=== PATIENT | male | born 1965 | race Caucasian/White ===

== ENCOUNTER 2016-12-25 18:01 | Emergency (ER) | payer MEDICARE, MEDICAID ==
--- NOTE | 2016-12-25 19:07 | Emergency Department Record ---
History of Present Illness - General Chief Complaint: Fall Injury Stated Complaint: FALL INJURY/ LEFT HIP PAIN Time Seen by Provider: 12/25/16 18:55 Source: Patient Mode of Arrival: Wheelchair Limitations: No limitations - History of Present Illness Initial Comments: The patient is here due to injuring his L hip about 5 hours ago. He feel out of his wheelchair directly onto his L hip and since it has been very painful and he cannot move it. 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 The patient denies any head trauma, neck or back pain, AP, CP or any SOB. He did drive himself to the ER. The patient did take 2 of his [place] 10's prior to getting here. Complaint: Fall Onset/Timin -: Hour(s) Fall From: Wheelchair When Fall Occurred: 4-6 hours [employer] Fall Witnessed: Yes, by bystander Place Fall Occurred: Home Loss of Consciousness: None Prolonged Down Time?: Minute(s) Severity scale (1-10): 10 Quality: Aching - [place] Coma Scale Eye Response: (4) Open spontaneously Motor Response: (6) Obeys commands Verbal Response: (5) Oriented [place] Total: 15 - Related Data Home Medications Medication Instructions Recorded Confirmed Last Taken Hydrocodone/Acetaminophen [[place] 1 tab PO Q8H PRN 12/25/16 12/25/16 12/25/16 10mg/325mg] Pregabalin [Lyrica] 150 mg PO BID 12/25/16 12/25/16 12/25/16 Allergies Allergy/AdvReac Type Severity Reaction Status Date / Time cephalexin [From Keflex] Allergy NAUSEA AND Verified 12/25/16 18:43 VOMITING morphine AdvReac HYPERSENSIT Verified 12/25/16 18:43 IVITY Travel Screening - Travel/Exposure Within Last 30 Days Have you traveled within the last 30 days?: No - Travel/Exposure Within Last Year Have you traveled outside the [place] in the last year?: No - Additonal Travel Details Have you been exposed to anyone with a communicable illness?: No - Travel Symptoms Symptom Screening: None Review of Systems Constitutional: Denies: Chills, Fever Eyes: Denies: Eye discharge ENT: Denies: Congestion Respiratory: Denies: Cough, Dyspnea Past Medical History - SOCIAL HISTORY Smoking Status: Current every day smoker Alcohol Use: None Drug Use: Occasional Drug Use Detail:: Marijuana - RESPIRATORY Hx Respiratory Disorders: No - CARDIOVASCULAR Hx Cardio Disorders: Yes Hx Hypertension: Yes (not on medication) - NEURO Hx Neuro Disorders: No - GI Hx GI Disorders: Yes Hx Reflux: Yes - Hx Genitourinary Disorders: No - ENDOCRINE Hx Endocrine Disorders: No - MUSCULOSKELETAL Hx Musculoskeletal Disorders: Yes Comment:: left aka - PSYCH Hx Psych Problems: Yes Hx Anxiety: Yes Hx Depression: Yes - HEMATOLOGY/ONCOLOGY Hx Hematology/Oncology Disorders: No Family Medical History Any Significant Family History?: No Physical Exam - General General Appearance: Alert, Cooperative, Mild distress (due to L hip pain.) - Head Head exam: Atraumatic, Normocephalic - Eye Eye exam: Normal appearance, PERRL - Neck Neck exam: Normal inspection, Full ROM. negative: Tenderness - Respiratory Respiratory exam: Normal lung sounds bilaterally. negative: Respiratory distress - Cardiovascular Cardiovascular Exam: Regular rate, Normal rhythm, Normal heart sounds - GI/Abdominal GI/Abdominal exam: Soft, Normal bowel sounds. negative: Tenderness - Extremities Extremities exam: Tenderness (The L hip is very tender.). negative: Normal inspection, Full ROM - Back Back exam: Reports: Normal inspection. Denies: Paraspinal tenderness, Vertebral tenderness - Neurological Neurological exam: Alert. negative: Motor sensory deficit Course Vital Signs 12/25/16 18:40 Temperature 98.9 F Pulse Rate [ 116 H Pulse Ox Probe] Respiratory 20 Rate Blood Pressure 174/100 [Left Arm] Pulse Ox 94 L - Reevaluation(s) Reevaluation #1: The patient is doing better at this time. His pain is improved with the Toradol. I did explain to the patient that his xrays do not demonstrate any fx of dislocation. He does have an appointment with his ORtho doc in 5 days and is to have the hip rechecked at that time. 12/25/16 21:18 Medical Decision Making - Data Complexity MDM Data: X-Ray Ordered and/or Reviewed - Radiology Data Radiology results: Report reviewed (L Hip: No acute changes. Pelvis CT: No obvious hip fx per Rad.) Disposition Disposition: Discharge Clinical Impression: Contusion of hip Qualifiers: Encounter type: initial encounter Laterality: left Qualified Code(s): S70.02XA - Contusion of left hip, initial encounter Disposition: Home, Self-Care Condition: (1) Good Instructions: Hip Contusion (ED) Additional Instructions: Please continue your home pain medicines. Please see your Orthopedic doctor next week as planned on the . Return to the ER for any worsening symptoms. Forms: Patient Portal Access Time of Disposition: 21:17 Quality - Quality Measures Quality Measures: N/A - Blood Pressure Screening View Details: Yes Does Patient Have Any of the Following: No Blood Pressure Classification: Pre-Hypertensive BP Reading Systolic Measurement: 146 Diastolic Measurement: 89 Screening for High Blood Pressure: < Pre-Hypertensive BP, F/U Documented > [ G8950] Pre-Hypertensive Follow-up Interventions: Referral to alternative/primary care provider.
[2016-12-25] MEDS: KETOROLAC 30 MG/ML VIAL IM ONE (19:12)
--- NOTE | 2016-12-27 23:07 | RADIOLOGY REPORT ---
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 FALL TODAY. LEFT HIP/LEG PAIN. TECHNIQUE: An AP view of the pelvis is obtained as well as AP and frog-leg lateral views of the left hip. COMPARISON: None. ENCOUNTER: Initial. FINDINGS: There are changes of above-knee amputation with the amputation site at the level of the proximal shaft. There is diffuse osteopenia of the proximal left femur. No definite acute fracture is seen. The anterolateral margin of the left femoral neck, however, appears somewhat undulating. An impaction-type fracture would be difficult to entirely exclude. No other osseous evidence of fracture nor dislocation. There are mild degenerative changes of each hip and within the lower lumbar spine. Vascular calcifications are noted in the lower pelvis. IMPRESSION: 1. STATUS POST LEFT ABOVE-KNEE AMPUTATION. DIFFUSE OSTEOPENIA OF THE REMAINING LEFT FEMUR. 2. NO DEFINITE ACUTE FRACTURE IDENTIFIED, THOUGH THE ANTEROLATERAL MARGIN OF THE LEFT FEMORAL NECK APPEARS SOMEWHAT UNDULATING AND AN ACUTE IMPACTION-TYPE FRACTURE WOULD BE DIFFICULT TO ENTIRELY EXCLUDE. 3. MILD DEGENERATIVE CHANGES OF EACH HIP. JOB NUMBER: [id number] [facility]
--- NOTE | 2016-12-27 23:33 | CT SCAN REPORT ---
EXAM: CT SCAN PELVIS WO CONTRAST HISTORY: LEFT ABOVE-KNEE AMPUTATION. FALL TODAY WITH SEVERE PAIN IN LEFT HIP. TECHNIQUE: Thin-collimation helical CT examination of the pelvis is performed without oral or intravenous contrast administration. Coronal and sagittal reformatted images are generated as well as 3D volume-rendered images and reviewed. COMPARISON: The same-day unilateral left hip. FINDINGS: There is again noted moderate to severe osteopenia of the visualized left femur, likely due to disuse. There is associated muscular atrophy on the left. There is again noted a somewhat undulating anterolateral margin of the subcapital left femoral neck, though no definite cortical step-off is seen. No definite fracture nor dislocation. Mild degenerative changes of each hip questioned. A small left hip joint effusion is possible. No mass or adenopathy in the visualized central pelvis. There is diverticulosis of the visualized distal colon without evidence of diverticulitis. No focal urinary bladder wall abnormality is seen. There is likely a small urachal remnant. A small fat-filled umbilical hernia is present. IMPRESSION: 1. DIFFUSE OSTEOPENIA OF THE VISUALIZED LEFT FEMUR LIMITS EVALUATION. NO DEFINITE FRACTURE SEEN, THOUGH THE ANTEROLATERAL MARGIN OF THE LEFT FEMORAL NECK AGAIN APPEARS SOMEWHAT UNDULATING, PROBABLY CHRONIC RATHER THAT THE RESULT OF AN IMPACTION-TYPE FRACTURE. 2. POSSIBLE VERY SMALL LEFT HIP JOINT EFFUSION. 3. MILD DEGENERATIVE CHANGES OF EACH HIP. 4. DIVERTICULOSIS OF THE VISUALIZED DISTAL COLON. JOB NUMBER: [id number] [facility]
== END 2016-12-25 21:26 | disposition home or self-care (01) ==
LOC: ER 18:01
DX: S70.02XA Contusion of left hip, initial encounter (principal); W05.0XXA Fall from non-moving wheelchair, initial encounter; Y92.009 Unspecified place in unspecified non-institutional (private) residence as the place of occurrence of the external cause; Z89.612 Acquired absence of left leg above knee
CPT/HCPCS: 99283; 96372; 99284; 73502; 72192; J1885

== ENCOUNTER 2018-10-08 09:21 | Emergency (ER) | payer MEDICARE ==
--- NOTE | 2018-10-08 09:51 | Emergency Department Record ---
History of Present Illness - General Chief complaint: Extremity Problem Stated complaint: HAMSTRING PAIN Time Seen by Provider: 10/08/18 09:39 Source: Patient, RN notes reviewed Mode of Arrival: Wheelchair - History of Present Illness Initial comments: right posterior thigh pain and he was pivotting on the right leg and his left leg is amputatated at the prsimal thigh area 3 inches of femur remain and that happened in 2000 crush injury at work. Walks with cruches and unable to use a artificial leg. Primary is Dr Ji and pain management is by [facility] Dr. Red and he has plenty of norco 10 mg . His chronic pain is the left stump and bone pain left stump. that is why he can not use an artificial leg. Onset/Timin -: Days(s) Location: Right, Thigh History of Same: No Severity scale (1-10): 10 Quality: Sharp Consistency: Constant, Intermittent Improves with: Immobilization Worsens with: Exertion, Weight bearing Associated Symptoms: Denies other symptoms - Related Data Home Medications Medication Instructions Recorded Confirmed Last Taken Diclofenac Sodium 1 apply TOP ASDIR 10/08/18 10/08/18 Unknown Lisinopril/Hydrochlorothiazide 1 tab PO DAILY 10/08/18 10/08/18 10/08/18 [Lisinopril-Hctz 20-12.5 mg Tab] Allergies Allergy/AdvReac Type Severity Reaction Status Date / Time cephalexin [From Keflex] Allergy NAUSEA AND Verified 10/08/18 09:29 VOMITING morphine AdvReac HYPERSENSIT Verified 10/08/18 09:29 IVITY Travel Screening - Travel/Exposure Within Last 30 Days Have you traveled within the last 30 days?: No - Travel/Exposure Within Last Year Have you traveled outside the [place] in the last year?: No - Additonal Travel Details Have you been exposed to anyone with a communicable illness?: No - Travel Symptoms Symptom Screening: None Review of Systems Reviewed: No additional complaints except as noted below Constitutional: Reports: As per HPI. Denies: Chills, Fever, Malaise, Night sweats, Weakness, Weight change Eyes: Reports: As per HPI. Denies: Eye discharge, Eye pain, Photophobia, Vision change ENT: Reports: As per HPI. Denies: Congestion, Dental pain, Ear pain, Epistaxis, Hearing loss, Throat pain Respiratory: Reports: As per HPI. Denies: Cough, Dyspnea, Hemoptysis, Stridor, Wheezes Cardiovascular: Reports: As per HPI. Denies: Arrhythmia, Chest pain, Dyspnea on exertion, Edema, Murmurs, Orthopnea, Palpitations, Paroxysmal nocturnal dyspnea, Rheumatic Fever, Syncope Endocrine: Reports: As per HPI. Denies: Fatigue, Heat or cold intolerance, Polydipsia, Polyuria Gastrointestinal: Reports: As per HPI. Denies: Abdominal pain, Constipation, Diarrhea, Hematemesis, Hematochezia, Melena, Nausea, Vomiting Genitourinary: Reports: As per HPI. Denies: Dysuria, Frequency, Hematuria, Incontinence, Retention, Testicular pain, Testicular mass, Urgency Musculoskeletal: Reports: As per HPI, Myalgia (right posterior thigh). Denies: Arthralgia, Back pain, Gout, Joint swelling, Neck pain Skin: Reports: As per HPI. Denies: Bruising, Change in color, Change in hair/nails, Lesions, Pruritus, Rash Neurological: Reports: As per HPI. Denies: Abnormal gait, Confusion, Headache, Numbness, Paresthesias, Seizure, Tingling, Tremors, Vertigo, Weakness Psychiatric: Reports: As per HPI. Denies: Anxiety, Auditory hallucinations, Depression, Homicidal thoughts, Suicidal thoughts, Visual hallucinations Hematological/Lymphatic: Reports: As per HPI. Denies: Anemia, Blood Clots, Easy bleeding, Easy bruising, Swollen glands Past Medical History - SOCIAL HISTORY Smoking Status: Current every day smoker Alcohol Use: None Drug Use: Rare Drug Use Detail:: Marijuana - RESPIRATORY Hx Respiratory Disorders: No - CARDIOVASCULAR Hx Cardio Disorders: Yes Hx Hypertension: Yes (not on medication) - NEURO Hx Neuro Disorders: No - GI Hx GI Disorders: Yes Hx Reflux: Yes - Hx Genitourinary Disorders: No - ENDOCRINE Hx Endocrine Disorders: No - MUSCULOSKELETAL Hx Musculoskeletal Disorders: Yes Comment:: left aka - PSYCH Hx Psych Problems: Yes Hx Anxiety: Yes Hx Depression: Yes - HEMATOLOGY/ONCOLOGY Hx Hematology/Oncology Disorders: No Family Medical History Any Significant Family History?: No Physical Exam - General General Appearance: Alert, Oriented x3, Cooperative, Mild distress - Head Head exam: Normal inspection - Eye Eye exam: Normal appearance, PERRL Pupils: Normal accommodation - ENT ENT exam: Normal exam, Mucous membranes moist, Normal external ear exam, Normal orophraynx, TM's normal bilaterally Ear exam: Normal external inspection. negative: External canal tenderness Nasal Exam: Normal inspection. negative: Discharge, Sinus tenderness Mouth exam: Normal external inspection, Tongue normal Teeth exam: Normal inspection. negative: Dental caries Throat exam: Normal inspection. negative: Tonsillar erythema, Tonsillar exudate - Neck Neck exam: Normal inspection, Full ROM. negative: Tenderness - Respiratory Respiratory exam: Normal lung sounds bilaterally. negative: Respiratory distress - Cardiovascular Cardiovascular Exam: Regular rate, Normal rhythm, Normal heart sounds - GI/Abdominal GI/Abdominal exam: Soft, Normal bowel sounds. negative: Tenderness - Rectal Rectal exam: Deferred - exam: Deferred - Extremities Extremities exam: Normal inspection, Full ROM, Normal capillary refill, Tenderness (right posterior thigh, no defect palpated ,pulse is good into his foot and neuro intact.) - Back Back exam: Reports: Normal inspection, Full ROM. Denies: Muscle spasm, Rash noted, Tenderness - Neurological Neurological exam: Alert, Normal gait, Oriented X3, Reflexes normal - Psychiatric Psychiatric exam: Normal affect, Normal mood - Skin Skin exam: Dry, Intact, Normal color, Warm Course Vital Signs 10/08/18 09:32 Temperature 98.3 F Pulse Rate 89 Respiratory 20 Rate Blood Pressure 160/89 Pulse Ox 98 Medical Decision Making - Data Complexity MDM Data: X-Ray Ordered and/or Reviewed (negative) Disposition Clinical Impression: Strain of right hip and thigh Qualifiers: Encounter type: initial encounter Qualified Code(s): S76.011A - Strain of muscle, fascia and tendon of right hip, initial encounter Disposition: Home, Self-Care Condition: (1) Good Instructions: Hamstring Injury (ED) Additional Instructions: follow up with Dr Ji in three days use voltarin gel on posterior thigh Forms: Patient Portal Access Time of Disposition: 10:36 Quality - Quality Measures Quality Measures: N/A - Blood Pressure Screening Does Patient Have Any of the Following: No Blood Pressure Classification: Pre-Hypertensive BP Reading Systolic Measurement: 160 Diastolic Measurement: 89 Screening for High Blood Pressure: < Pre-Hypertensive BP, F/U Documented > [G8950] Pre-Hypertensive Follow-up Interventions: Referral to alternative/primary care provider.
--- NOTE | 2018-10-11 05:00 | RADIOLOGY REPORT ---
EXAM: RIGHT FEMUR, TWO VIEWS HISTORY: TWISTED LEG GETTING OUT OF CHAIR. PAIN. TECHNIQUE: Two views of the right femur were obtained. FINDINGS: No fracture or malalignment is seen. The soft tissues appear unremarkable. IMPRESSION: NO ACUTE OSSEOUS ABNORMALITY RIGHT FEMUR. JOB NUMBER: [id number] [facility]
== END 2018-10-08 10:45 | disposition home or self-care (01) ==
LOC: ER 09:21
DX: S76.011A Strain of muscle, fascia and tendon of right hip, initial encounter (principal); X50.0XXA Overexertion from strenuous movement or load, initial encounter
CPT/HCPCS: 99283